=== PATIENT | female | born 1990 | race Two or more races ===

== ENCOUNTER 2020-12-09 05:54 | Day surgery (SDC) | payer OTHER ==
[2020-12-09] MEDS ORDERED: MORGIDOX100 MG PO (11:10)
[2020-12-09] MEDS ORDERED: IBU600 MG PO (11:11)
== END 2020-12-09 18:30 | disposition home or self-care (01) ==
LOC: CIR.AMB 05:54
PROVIDERS: ATTEND Obstetrics & Gynecology
DX: O02.1 Missed abortion (principal); Z20.822 Contact with and (suspected) exposure to COVID-19

== ENCOUNTER 2021-11-27 18:47 | Emergency (ER) | payer OTHER ==
[~2021-11-27] VITALS: Ht 149.9 cm; Wt 63.0 kg
[~2021-11-27 18:47] MED LIST: IBU600 MG PO; MORGIDOX100 MG PO
[2021-11-27] MEDS ORDERED: PRENATALES (19:36)
== END 2021-11-27 23:30 ==
LOC: ER 18:47
DX: O20.0 Threatened abortion (principal); Z3A.01 Less than 8 weeks gestation of pregnancy

== ENCOUNTER 2021-11-29 08:48 | Outpatient (CLI) | payer OTHER ==
[~2021-11-29 08:48] MED LIST changes: +PRENATALES
== END 2021-11-29 08:49 | disposition home or self-care (01) ==
LOC: LAB 08:48
PROVIDERS: ATTEND General Practice
DX: O20.0 Threatened abortion (principal)